=== PATIENT | female | born 1980 | race American Indian/Alaskan Native ===

== ENCOUNTER 2017-12-25 12:15 | Emergency (ER) | payer SELFPAY ==
[2017-12-25 12:34] VITALS: BP 118/73
== END 2017-12-25 18:47 | disposition left against medical advice (07) ==
LOC: ED 12:15
DX: R22.0 Localized swelling, mass and lump, head (principal); Z53.21 Procedure and treatment not carried out due to patient leaving prior to being seen by health care provider